=== PATIENT | female | born 1985 | race Caucasian/White ===

== ENCOUNTER → 2017-05-02 | Outpatient (CLI) | payer BC, OTHER ==
--- NOTE | 2017-05-03 08:27 | US ---
EXAM DESCRIPTION: Abdomen,Limited CLINICAL HISTORY: 31 years, Female, CHECK FOR GALLSTONES COMPARISON: None. FINDINGS: Visualization the gallbladder is somewhat impaired due to bowel gas. No definite gallstones. Wall not thickened. No tenderness to scanning the gallbladder. Common bile duct 3.5 mm. Intrahepatic ducts unremarkable. Liver 13.7 cm. Normal echogenicity. IVC unremarkable. Head and body pancreas unremarkable. Pancreatic tail not well seen. IMPRESSION: Unremarkable right upper quadrant ultrasound. Electronically signed by: Gustavo Davison MD 05/03/2017 8:27 AM CDT
== END | disposition home or self-care (01) ==
LOC: US 08:17
PROVIDERS: ATTEND Obstetrics & Gynecology
DX: R10.11 Right upper quadrant pain (principal)